=== PATIENT | female | born 1945 | race Caucasian/White ===

== ENCOUNTER 2017-08-23 13:00 | Inpatient (IN) | payer MEDICARE ==
--- NOTE | 2017-08-23 13:31 | Rehab Joint Replacement Pre-Op ---
Rehab Joint Replacement Pre-Op - Pre-Op Visit Reviewed Items Scheduled for Post Op Visit: Yes Scheduled Post Op Visit Date: 09/09/17 Pre-Op Visit Comment: Patient lives in home with son who will help her and be available to care for mother and take her to outpatient appts after home. Patient has three steps into house with post to hold onto and door frame when close to house. Has walker and cane already, has shower with small threshold to get into and seat in shower, has a handicap toilet seat. Has been using cane for a while now for gait but comfortable with walker. Once in house, all patient 's living will be on one floor. Ismael Hose/Garment Measurement TKR - Knee High: Yes (Ankle circum: 10 inches, calf circum: 14 7/8 inches, thigh circum: 27.25 inches. Length of leg posterior knee to heel: 18 inches, gluteal fold to heel: 29 inches. Recommended size for stockings: Large Regular but may have issue with ankle.) Ismael Hose/Garment Measure THR - Thigh High: N/A Exercise Reviewed: Yes Stair Climbing: Yes Cane/Walker/Crutch Training: Yes Vend Equipment - Cane or Walker and OT Kit: N/A List of Venders in the Area: N/A Shower Chair Transfers: Yes Car Transfers: Yes Bed Transfers: Yes Medical History Forms Issued: N/A Functional Scale Forms Issued: N/A (Patient had other knee replaced four years ago so comfortable with all aspects of this surgery.)
[2017-09-05] MEDS ORDERED: ACETAMINOPHEN 1,000 MG/100 ML BTL IV ONE (06:00)
[2017-09-05] MEDS ORDERED: MECLIZINE 25 MG TABLET PO ONE (06:00)
[2017-09-05] MEDS ORDERED: CEFAZOLIN 2 Gram 2 GM/50 ML BAG IVPB ONE (06:00)
[2017-09-05] MEDS ORDERED: METOCLOPRAMIDE 10 MG TABLET PO ONE (06:00)
[2017-09-05] MEDS ORDERED: FAMOTIDINE 20MG TABLET PO ONE (06:00)
--- NOTE | 2017-09-05 13:10 | Operative Note ---
DATE OF SURGERY: 09/05/2017 Surgeon: Terry Barreto DO PREOPERATIVE DIAGNOSIS: Osteoarthritis of the right knee. POSTOPERATIVE DIAGNOSIS: Osteoarthritis of the right knee. OPERATION: Right total knee arthroplasty. DESCRIPTION OF PROCEDURE: This 71-year-old female was taken to the operating room and placed in the supine position on the operating room table where spinal anesthesia was induced by department of anesthesia. Found to be satisfactory anesthetic. The right lower extremity was elevated. It was prepped with Hibiclens and draped in the usual sterile fashion. Exsanguinated and the tourniquet inflated to 300 mmHg. All scrub personnel wore personal isolation suits. An anterior longitudinal midline incision was made followed by a medial parapatellar arthrotomy incision. An intracondylar drill hole was made for the intramedullary alignment marleni and a 5-degree valgus 9 mm cut was made on the distal femur. Sizing jig was affixed and a size 62.5 was seen to be the appropriate size. The 4-in-1 cutting block was then pinned in 3 degrees of external rotation. The wafers of bone were removed. We then directed our attention to the proximal tibia, and an extramedullary alignment guide was used to cut the proximal tibia referencing a 10 mm cut off the lateral tibial plateau. Once the appropriate alignment had been assured, a 3-degree posterior slope cut was made and the wafer of bone was removed. Remnants of the menisci and osteophytes were removed from the posterior aspect of the joint. The tibia was sized to a size 71. The stem punch was used. The soft tissue balance was checked and found to be equal in flexion and extension. The patella was cut and restored to anatomic height with an 34 x 7.8 mm patella trial. The knee was taken through range of motion and all aspects appeared to be stable. All trial components were removed and the wound copiously irrigated with pulse lavage, lactated Ringer's solution. Exparel was injected into the posterior, medial, and lateral corners of the joint and the remainder was injected into the periosteum and joint capsule of the proximal tibia and distal femur after the final components had been inserted. After copious irrigation, all bony surfaces were dried and all components were cemented and excess cement removed after the insertion of each component. Initially the tibial baseplate was placed followed by the tibial bearing, femoral component, and finally the patella. Once the cement had hardened, the knee was again taken through range of motion and found to be stable. A drain was placed through a separate stab incision. The arthrotomy incision was closed with a #2 Vicryl. The subcutaneous tissue was closed with 0 Vicryl and the skin was stapled. Sterile dressings with a Polar Care were applied. The patient was taken to the recovery room in satisfactory condition. GROSS PATHOLOGY: This patient demonstrated severe osteoarthritis of the medial compartment and patellofemoral joint with full-thickness articular cartilage loss being identified in those areas. Osteophytes were present on the lateral femoral condyle as well with grade 2 changes being present laterally both on the femur and the tibia. Final components inserted were a [employer] size 62.5 cruciate retaining femoral component, a 71 tibial baseplate, an 11 mm anterior stabilized E1 bearing, and a 34 x 7.8 mm patella was used. CC: Derek BLANDON
[2017-09-05] MEDS ORDERED: PATIENT OWN MED: PROAIR HFA INH PRN (13:21)
[2017-09-05] MEDS ORDERED: DIPHENHYDRAMINE HCL 25 MG CAPSULE PO PRN (13:30)
[2017-09-05] MEDS ORDERED: HYDROMORPHONE HCL 1 MG/ML CPJ IM PRN (13:30)
[2017-09-05] MEDS ORDERED: MAGNESIUM HYDROXIDE 30 ML UDC PO PRN (13:30)
[2017-09-05] MEDS ORDERED: OXYCODONE HCL 5 MG TABLET PO PRN ×2 (13:30)
[2017-09-05] MEDS ORDERED: AL HYDROX/MAG HYDROX 30ML UD PO PRN (13:30)
[2017-09-05] MEDS ORDERED: METOCLOPRAMIDE HCL 10 MG/2 ML VIAL IVP PRN (13:30)
[2017-09-05] MEDS ORDERED: HYDROMORPHONE HCL 2 MG/ML VIAL IM PRN (13:30)
[2017-09-05] MEDS ORDERED: TRAMADOL HCL 50 MG TABLET PO PRN (13:30)
[2017-09-05] MEDS ORDERED: ZOLPIDEM TARTRATE 5 MG TABLET PO PRN (13:30)
[2017-09-05] MEDS ORDERED: SENNOSIDES/DOCUSATE SODIUM UD CAPSULE PO PRN (13:30)
[2017-09-05] MEDS ORDERED: ONDANSETRON HCL IV 4 MG/2 ML VIAL IVP PRN (13:30)
[2017-09-05] MEDS ORDERED: TRANEXAMIC ACID 1,000 MG in 0.9 % SODIUM CHLORIDE 100ML 100 ML IVPB ONE (14:00)
[2017-09-05] MEDS ORDERED: DIPHENHYDRAMINE HCL IV 50 MG/ML VIAL IVP ONE (14:48)
[2017-09-05] MEDS ORDERED: FENTANYL PF 100MCG/2ML VIAL IV ONE (14:48)
[2017-09-05] MEDS ORDERED: MIDAZOLAM HCL 2MG/2ML VIAL IV ONE (14:48)
[2017-09-05] MEDS ORDERED: EPHEDRINE SULFATE 50 MG/ML ML IV ONE (14:48)
[2017-09-05] MEDS ORDERED: HYDROMORPHONE HCL 2 MG/ML VIAL IV ONE (14:48)
[2017-09-05] MEDS ORDERED: LIDOCAINE 2% MDV (20MG/ML) 20ML VIAL IV ONE (14:48)
[2017-09-05] MEDS ORDERED: BUPIVACAINE LIPOSOME 266MG/20ML VIAL IV ONE (14:49)
[2017-09-05] MEDS ORDERED: BUPIVACAINE 0.25% W/EPI MPF 30ML VIAL IVP ONE (14:49)
--- NOTE | 2017-09-05 17:16 | Rehab Evaluation ---
Patient Information - Patient Information Diagnosis: OA Right Knee Ordered Treatment: PT Evaluate and Treat Status: Initial Evaluation Surgery: Yes (R TKA) Date of Surgery: 09/05/17 History: Detail (Pt. reports wear and tear and the right knee. Pt. reports her left knee was replaced previously.) Past Med/Giovanni Hx Detail: Detail (See additional intake list.) Past Medical/Surgical Hx: PAST MEDICAL/SURGICAL HISTORY Past Surgical History T&A; appy; hysterectomy; adryan; tubal ligation; left total knee replacement; colonoscopy PMH - Respiratory Hx Respiratory Disorders Yes Hx Asthma Yes Hx Bronchitis Yes Hx Pneumonia Yes: 04/2017 "walking pneumonia" Hx Sleep Apnea ? PMH - Cardiovascular Hx Cardiovascular Disorders Yes Hx Edema Yes: left worse-slight pitting Hx Hypertension Yes Hx Heart Murmur Yes: no problems Exercise Tolerance Fair Comment: due to knee problem PMH - Neuro Hx Neurological Disorders Yes Hx Neuropathy Yes: both feet PMH - GI Hx Gastrointestinal Disorders Yes Hx Diverticulitis Yes: diverticulosis Hx Irritable Bowel Yes: urgency Hx Ulcer Yes: 1980s Hx Weight Loss/Weight Gain Yes: 20lbs- PMH - Hx Genitourinary Disorders Yes Hx Bladder Problem Yes: urgency-wears depends PMH - Endocrine Hx Endocrine Disorders Yes Hx Diabetes Yes Hx Thyroid Disease Yes Hx of NIDDM Yes PMH - Musculoskeletal Hx Musculoskeletal Disorders Yes Hx Arthritis Yes PMH - Psych Hx Psychiatric Problems Yes Hx Anxiety Yes Hx Depression Yes PMH - Hematology/Oncology Hx Hematology/Oncology Yes Disorders Hx Blood Transfusion Reaction No Premorbid Status: Detail (Slowly progressive worsening of sx.) Social History: Detail (See subjective information per patient.) Precautions: [place], Fall - Time With Patient Total Time Spent With Patient (Min): 60 Treatment Procedures: Detail (Pt. was able to verbalize most of her precautions , but required verbal cueing for precautions to not externally rotate her leg while supine and to not pivot her knee. Pt. required min assist x2 to sit up in bed for a supine to sit transfer. Pt. required min assist x1 for sit to stand transfer, but immediately had to sit down secondary to dizziness. Pt.'s BP was taken once seated and was 143/72. Pt.'s LE strength was assessed with pt. seated. Pt.'s dizziness did not fully subside after 2 minutes and was helped back into supine position, min assist x2. Pt. used L leg to assist R leg into bed, and used trapeze assist with scooting up in bed. Pt. was left in supine, R leg in CPM, IPCs on, cold pack on R knee, oxygen hooked up, and call light available. Nursing staff was notified. Pt. maintained 96% 02 sat throughout tx with room air.) Subjective Information - Subjective Information Per Patient (Pt. reports she is experiencing 0/10 pain right now. Pt. states she is feeling itchy due to a reaction of one of her medications and was put on Benadryl. Pt. reports she is starting to feel slightly drowsy from the Benadryl. Pt. lives with her son in a single story home. Pt. states her son will be able to help her as needed. She reports her bedroom, bathroom, living room and kitchen are all accessable on the first floor. There are 3 steps to enter her home with no railing and there are also 2 steps to enter her home from the garage with no railing. Pt. reports she holds onto a poll to assist with ascending/descending the stairs, and generally uses the garage entrance to enter her home. Pt. reports there is a small threshold to get in the shower and that there is a small seat in the corner of the shower. Pt. states she has a handicap toilet seat. Pt. reports she has a front wheeled walker and a single point cane to assist with ambulation. The pt. reports feeling more comfortable when using the walker. Pt. reports no complaints of experiencing shortness of breath, but does use an inhaler/Advair in the morning. Pt. reported she could move her toes and feel them.) Objective Data - Pain Pain Present: No Pain Intensity: 0 Pain Scale Used: Numeric (1 - 10) - Mental Status Patient Orientation: Oriented x3 - Visual Perception Appears within normal limits for therapeutic activities - ROM Not within normal limits (R side not tested at this time. Left her 0-60 in CPM. L AROM WNL.) - Strength/Tone Not within normal limits (UE: 5/5 bilat shoulder flexion and ABD, elbow flexion and ABD. LE: L hip flexion 4-/5, L knee flexion and ext 4/5, L DF and PF 5/5 R hip flexion 3+/5, Pt. met min resistance to R knee flexion and extension, R DF and PF 4/5 Bilat hip ADD and ABD grossly 4/5) - Coordination Appears within normal limits for therapeutic activities - Bed Mobility Needs Assist (Pt. required assistance from overhead trapeze and support bars to help reposition her in bed. Pt. was able to use her L LE to help assist with bed mobility. Pt. could raise pelvis off the bed with assist from overhead trapeze to allow PT to reposition CPM.) - Transfers Needs Assist (See treatment note.) - Balance Balance Sitting: Good (Pt. used bed to support self when sitting. When supporting self, pt. didn't show any postural sway.) Balance Standing: Fair (Pt. only stood for a few seconds, but had to lower back down due to feeling dizzy.) - Sensation Intact - Gait Detail (Not assessed due to pt. complaints of dizziness with standing.) - ADL's/IADL's Detail (Not assessed.) - Special Tests No Therapy Assessment - Therapy Assessment Detail (Pt. presents with decreased LE strength, impaired balance, ROM deficits , and inability to ambulate due to complaints of dizziness. Pt. will benefit from PT to help improve these impairments and meet her goals.) Patient Education - Patient Education Teaching Topic: Equipment Use, Precautions, Risk Factors Response: Verbalize Understanding Teaching Method: Discussion, Demonstration Teaching Recipient: Patient Barriers To Learning: None Problem List - Problem List Physical Therapy Problem List: Detail (1. LE weakness 2. Non-ambulatory 3. Impaired balance 4. Pain in R knee 5. Unable to verbalize all precautions) Goals - Goals Physical Therapy Goals: 1. Pt. will be able to verbalize all knee precautions with full understanding. 2. Pt. will demonstrate proper gait mechanics with with front wheeled walker. 3. Pt. will independently and safely ambulate 100 feet with a front wheeled walker on level ground CGA +1. 4. Pt. will safely and independently ascend/descend 3 steps so she can enter her home. 5. Pt. will be independent with her home exercise program. 6. Pt. will demonstrate good standing balance by standing for 30 seconds with minimal to no sway. Prognosis - Prognosis Good (Pt. is expected to complete all inpatient PT goals and transition to home environment safely, considering she has had a L TKA before right TKA.) Plan - Plan Physical Therapy Plan: Pt. will be seen 1-2x a day for inpatient PT until goals are met.
[2017-09-05] MEDS: ACETAMINOPHEN 1,000 MG/100 ML BTL IV SCH ×2 (17:21→21:58)
[2017-09-05] MEDS: RINGERS SOLUTION,LACTATED 1,000 ML IV SCH (17:22)
[2017-09-05] MEDS: TRAMADOL HCL 50 MG TABLET PO PRN (17:42)
[2017-09-05] MEDS: GLIPIZIDE 5 MG PO SCH (17:54)
[2017-09-05] MEDS: CEFAZOLIN 2 Gram 2 GM/50 ML BAG IVPB SCH (18:32)
[2017-09-05] MEDS: ASPIRIN 325 MG TAB ENTERIC-COATED PO SCH (21:51)
[2017-09-05] MEDS ORDERED: PATIENT OWN MED: RALOXIFENE 60 MG PO SCH (22:00)
[2017-09-05] MEDS ORDERED: VENLAFAXINE 150 MG PO SCH (22:00)
[2017-09-05] MEDS ORDERED: LOSARTAN HCTZ PO SCH (22:00)
[2017-09-06] MEDS: CEFAZOLIN 2 Gram 2 GM/50 ML BAG IVPB SCH ×2 (01:29→08:49)
[2017-09-06] MEDS: ACETAMINOPHEN 1,000 MG/100 ML BTL IV SCH (04:39)
[2017-09-06 06:31] LABS: HEMATOCRIT 34.2 % (35.0-47.0); HEMOGLOBIN 10.9 gm/dl (11.6-16.0); MEAN CELL VOLUME 95.5 fl (81-97); MEAN CORPUSCULAR HEMOGLOBIN 30.4 pg (27-33); MEAN CORPUSCULAR HGB CONC 31.9 g/dl (32-36); MEAN PLATELET VOLUME 11.4 fl (7.4-10.4); PLATELET COUNT 157 K/uL (130-400); RED BLOOD COUNT 3.58 M/uL (3.80-5.40); RED CELL DISTRIBUTION WIDTH 12.7 % (11.5-14.5); WHITE BLOOD COUNT W/O DIFF 8.7 K/uL (4.2-12.2)
[2017-09-06] MEDS ORDERED: PATIENT OWN MED: LEVOTHYROXINE 75 MCG PO SCH (07:00)
[2017-09-06] MEDS: RINGERS SOLUTION,LACTATED 1,000 ML IV SCH (08:41)
[2017-09-06] MEDS: GLIPIZIDE 5 MG PO SCH (08:42)
[2017-09-06] MEDS: TRAMADOL HCL 50 MG TABLET PO PRN (08:49)
[2017-09-06] MEDS: ASPIRIN 325 MG TAB ENTERIC-COATED PO SCH ×2 (08:49→10:31)
[2017-09-06] MEDS ORDERED: ADVAIR INH SCH (10:00)
--- NOTE | 2017-09-06 12:41 | Rehab Evaluation ---
Patient Information - Patient Information Diagnosis: OA Right Knee Ordered Treatment: OT Evaluate and Treat Status: Initial Evaluation Surgery: Yes (R TKA) Date of Surgery: 09/05/17 History: Detail (Pt. reports wear and tear and the right knee. Pt. reports her left knee was replaced previously.) Past Med/Giovanni Hx Detail: Detail (See additional intake list.) Past Medical/Surgical Hx: PAST MEDICAL/SURGICAL HISTORY Past Surgical History T&A; appy; hysterectomy; adryan; tubal ligation; left total knee replacement; colonoscopy PMH - Respiratory Hx Respiratory Disorders Yes Hx Asthma Yes Hx Bronchitis Yes Hx Pneumonia Yes: 04/2017 "walking pneumonia" Hx Sleep Apnea ? PMH - Cardiovascular Hx Cardiovascular Disorders Yes Hx Edema Yes: left worse-slight pitting Hx Hypertension Yes Hx Heart Murmur Yes: no problems Exercise Tolerance Fair Comment: due to knee problem PMH - Neuro Hx Neurological Disorders Yes Hx Neuropathy Yes: both feet PMH - GI Hx Gastrointestinal Disorders Yes Hx Diverticulitis Yes: diverticulosis Hx Irritable Bowel Yes: urgency Hx Ulcer Yes: 1980s Hx Weight Loss/Weight Gain Yes: 20lbs- PMH - Hx Genitourinary Disorders Yes Hx Bladder Problem Yes: urgency-wears depends PMH - Endocrine Hx Endocrine Disorders Yes Hx Diabetes Yes Hx Thyroid Disease Yes Hx of NIDDM Yes PMH - Musculoskeletal Hx Musculoskeletal Disorders Yes Hx Arthritis Yes PMH - Psych Hx Psychiatric Problems Yes Hx Anxiety Yes Hx Depression Yes PMH - Hematology/Oncology Hx Hematology/Oncology Yes Disorders Hx Blood Transfusion Reaction No Premorbid Status: Detail (Slowly progressive worsening of sx.) Social History: Detail (Pt lives with her son in a single story home. Son does not work and will be available to help as needed. Pt's bedroom, bathroom, living room, and kitchen are all accessable on the first floor.. She has 3 steps to enter her home w/ no railing. Pt has walk in shower w/ bench that is part of the shower and glass door enclosure. Pt has fixed shower head but will be purchasing a hand held shower head. She reports having handicap toilet seat and 2WW.) Precautions: [place], Fall - Time With Patient Total Time Spent With Patient (Min): 30 Treatment Procedures: Detail (EVAL LOW OT) Subjective Information - Subjective Information Per Patient (Pt lives with her son in a single story home. Son does not work and will be available to help as needed. Pt's bedroom, bathroom, living room, and kitchen are all accessable on the first floor.. She has 3 steps to enter her home w/ no railing. Pt has walk in shower w/ bench that is part of the shower and glass door enclosure. Pt has fixed shower head but will be purchasing a hand held shower head. She reports having handicap toilet seat and 2WW.) Objective Data - Mental Status Patient Orientation: Oriented x3 - Visual Perception Appears within normal limits for therapeutic activities - ROM Within normal limits (BUE's) - Strength/Tone Within normal limits (BUE's) - Coordination Appears within normal limits for therapeutic activities - Bed Mobility Independent - Transfers Independent (w/ 2WW) - Balance Balance Sitting: Good - ADL's/IADL's Detail (Pt was educated on and demonstrated understanding of dressing techniques. She is independent w/ UB drsg and required min A for RLE to thread pants secondary to wound vac still connected and needing to be threaded through pants. Feel patient will be independent in this area once this is removed. Max A for R shoe don. Pt states that she will wear slip on shoes or be asking her son for assistance with shoe don/doff. Not interested in LH shoe horn. Min A for L shoe don (tying laces). Ind. w/ bed moblity into supine position at patient's request. She was wanting to rest before PT got there in 5 minutes. Pt feels confident w/ LB drsg using techniques learned. Discussed wrapping techniques to avoid water saturation if showering. No other questions at this time.) Therapy Assessment - Therapy Assessment Detail (Pt verbalizes and demonstrates understanding of drsg techniques, ADL equipment available, and is safe with UB & LB drsg.) Patient Education - Patient Education Teaching Topic: Equipment Use, Other (drsg techniques) Response: Return Demonstration Teaching Method: Discussion Teaching Recipient: Patient Barriers To Learning: None Problem List - Problem List Physical Therapy Problem List: Detail (1. LE weakness 2. Non-ambulatory 3. Impaired balance 4. Pain in R knee 5. Unable to verbalize all precautions) Goals - Goals Physical Therapy Goals: 1. Pt. will be able to verbalize all knee precautions with full understanding. 2. Pt. will demonstrate proper gait mechanics with with front wheeled walker. 3. Pt. will independently and safely ambulate 100 feet with a front wheeled walker on level ground CGA +1. 4. Pt. will safely and independently ascend/descend 3 steps so she can enter her home. 5. Pt. will be independent with her home exercise program. 6. Pt. will demonstrate good standing balance by standing for 30 seconds with minimal to no sway. Prognosis - Prognosis Good Plan - Plan Physical Therapy Plan: Pt. will be seen 1-2x a day for inpatient PT until goals are met. Occupational Therapy Plan: No further inpatient OT needed at this time.
[2017-09-06] MEDS ORDERED: HYDROCODONE/APAP 7.5/325MG TABLET PO PRN ×2 (13:30)
[2017-09-06] MEDS ORDERED: ACETAMINOPHEN 325 MG TAB PO PRN (13:30)
--- NOTE | 2017-09-06 13:51 | Physical Therapy Tx Note ---
Physical Therapy Tx Note - Treatment Note Tolerated: Good (Pt. denied dizziness at start of tx. Pt. reported 6/10 pain to start and 2-3/10 at end of tx. Pt. verbalized willingness to go home. Pt. reported she has a front wheeled walker with her, but it is currently in her vehicle.) Total Time Spent With Patient: 50 Physical Therapy Tx Note: Detail (Pt. independently ambulated with front wheeled walker for a distance of 110 feet. Following verbal cueing for AD placement, pt. was independently ascended and descended 3 steps with single point cane. Pt. was independent with bed mobility and transfer. Pt. verbalized understanding of HEP and precautions. Pt. exhibited good midline positioning with standing balance for more than 30 seconds with therapist nearby for assistance if needed. Pt. was left supine with call light available, B IPC, cryo right knee, nursing was notified of pt.'s completion of goals.) Physical Therapy Problem List: Detail (1. LE weakness 2. Non-ambulatory 3. Impaired balance 4. Pain in R knee 5. Unable to verbalize all precautions) Physical Therapy Goals: 1. Pt. will be able to verbalize all knee precautions with full understanding. 2. Pt. will demonstrate proper gait mechanics with with front wheeled walker. 3. Pt. will independently and safely ambulate 100 feet with a front wheeled walker on level ground CGA +1. 4. Pt. will safely and independently ascend/descend 3 steps so she can enter her home. 5. Pt. will be independent with her home exercise program. 6. Pt. will demonstrate good standing balance by standing for 30 seconds with minimal to no sway. Prognosis: Good (Pt. has met all inpatient goals and is appropriate for D/C to home environment.) Physical Therapy Plan: D/C pt. from inpatient PT.
--- NOTE | 2017-09-09 12:41 | Discharge Summary ---
DATE OF ADMISSION: 09/05/2017 DATE OF DISCHARGE: 09/06/2017 ADMITTING DIAGNOSIS: Osteoarthritis of the right knee. DISCHARGE DIAGNOSIS: osteoarthritis of the right knee. OPERATIVE PROCEDURE: Elective right total knee arthroplasty. DESCRIPTION: This 71-year-old female was admitted to the hospital for elective total knee arthroplasty and tolerated the operative procedure well. The drain was removed the first postoperative day and she cleared physical therapy. The patient did not demonstrate any evidence of DVT and pain was controlled with Gould and Ultram. The patient will be discharged with aspirin 325 mg b.i.d. for 2 weeks. She will take Ultram 50 mg 1 or 2 every 6 hours as necessary for pain. She was given 60. She will also take Gould 7.5/325, #80, 1 or 2 every 6 hours as necessary for pain and alternate them with the Ultram. She will have outpatient physical therapy. She will wear her TRISTA hose during the day and remove them at night. She was given routine wound care instructions. She will follow up in the office in the clinic on 09/20/2017 at [facility]. Should she have any problems prior to being seen, she was instructed to call my office. VANGIE
== END 2017-09-06 17:25 | disposition home or self-care (01) | DRG 470 ==
LOC: UNDOADMIN 09-05 08:17 → MEDSURG 09-05 08:17
PROVIDERS: ADMIT Orthopaedic Surgery; ATTEND Orthopaedic Surgery
PROC: 0SRC069 Replacement of Right Knee Joint with Oxidized Zirconium on Polyethylene Synthetic Substitute, Cemented, Open Approach (ICD-10-PCS; principal; 2017-09-05 10:30)
DX: M17.11 Unilateral primary osteoarthritis, right knee (principal); E11.9 Type 2 diabetes mellitus without complications; Z79.84 Long term (current) use of oral hypoglycemic drugs; E03.9 Hypothyroidism, unspecified; I10 Essential (primary) hypertension
CPT/HCPCS: 36416; 82948; 85025; 94640; 94761; 97116; 97165; 97530; J1200; J7120

== ENCOUNTER 2017-11-28 07:46 | Day surgery (SDC) | payer MEDICARE ==
[2017-11-28] MEDS ORDERED: NEOMYCIN/POLY./DEXAM OPTH OINT OPTH ONE (07:47)
[2017-11-28] MEDS ORDERED: EPINEPHRINE 1 MG/ML AMPUL SQ ONE (07:47)
[2017-11-28] MEDS ORDERED: TETRACAINE HCL 0.5% OPTH 2ML SOLU OPTH ONE (07:47)
[2017-11-28] MEDS ORDERED: TETRACAINE HCL 0.5% 15 ML OPTH BTL OPTH ONE (07:47)
[2017-11-28] MEDS ORDERED: MIDAZOLAM HCL 2MG/2ML VIAL IV ONE (07:47)
[2017-11-28] MEDS ORDERED: LIDOCAINE 1% MPF 100MG/10ML STERILE-PAK AMPULE IV ONE (07:47)
[2017-11-28] MEDS ORDERED: PROPOFOL 10 MG/ML VIAL IV ONE (07:47)
[2017-11-28] MEDS ORDERED: LIDOCAINE 2% MDV (20MG/ML) 20ML VIAL IV ONE ×2 (07:47)
[2017-11-28] MEDS ORDERED: CIPROFLOXACIN HCL 0.0015 GM, PHENYLEPHRINE HCL 0.05 GM, KETOROLAC TROMETHAMINE 0.000625 GM MC ONE ×5 (11:30)
--- NOTE | 2017-11-28 17:22 | OP NOTE CHAMES ---
DATE OF PROCEDURE: 11/28/17 PREOPERATIVE DIAGNOSIS: Nuclear sclerotic cataract, right eye. POSTOPERATIVE DIAGNOSIS: Nuclear sclerotic cataract, right eye. OPERATION: Phacoemulsification of cataractous lens with implantation of intraocular lens. LENS IMPLANT USED: Burns Model PCB00 + 22.0 diopters. COMPLICATIONS: None. PROCEDURE IN DETAIL: Following a retrobulbar and facial block, the patient was prepped and draped in the usual fashion for eye surgery. A lid speculum was placed in the right eye after which a 2.4 mm tunnel wound was placed at the temporal limbus and dissected into clear cornea. A paracentesis was placed at 2 oclock hours to the left and right of the initial incision and the chamber deepened with Viscoelastic. The keratome was then used to enter the anterior chamber after which the continuous circular capsulorrhexis was accomplished without difficulty using a bent needle and a Utrata forceps. Hydrodissection and hydrodelineation of the lens was performed after which the nucleus of the lens was removed using the Phaco handpiece in the [id number] technique. The residual cortical material was irrigated and aspirated from the eye after which the bag and chamber were re-examined. The bag was re-inflated with Viscoelastic and the intraocular lens injected into the capsular bag where it centered well. The Viscoelastic was then copiously irrigated and aspirated from the eye after which the temporal tunnel wound and paracentesis were hydrated and the wounds were examined. They were noted to be watertight. The lid speculum was removed from the eye and the eye patched and shielded. The patient was transferred to the recovery room in satisfactory condition and given an appointment to be reexamined in the clinic later today or as directed by Dr. Blackburn. JOB NUMBER: [id number]
== END 2017-11-28 10:23 | disposition home or self-care (01) ==
LOC: SUR 07:46
PROVIDERS: ATTEND Ophthalmology
DX: H25.11 Age-related nuclear cataract, right eye (principal); E11.9 Type 2 diabetes mellitus without complications; Z79.84 Long term (current) use of oral hypoglycemic drugs; I10 Essential (primary) hypertension; E03.9 Hypothyroidism, unspecified
CPT/HCPCS: J0171; J3490